=== PATIENT | female | born 1955 | race Two or more races ===

== ENCOUNTER 2018-09-15 08:38 | Day surgery (SDC) | payer MEDICARE, OTHER ==
[2018-09-04 09:49] LABS: APPEARANCE,URINE CLEAR; BILIRUBIN, URINE NEGATIVE (NEGATIVE); COLOR,URINE PALE YELLOW; GLUCOSE, URINE (UA) NEGATIVE (NEGATIVE); KETONES,URINE NEGATIVE (NEGATIVE); LEUKOCYTE ESTERASE ,URINE 1+ (NEGATIVE); NITRITE,URINE NEGATIVE (NEGATIVE); PH,URINE 5 (4.5-8.0); PROTEIN,URINE NEGATIVE (NEGATIVE); UROBILINOGEN,URINE NORMAL MG/DL (0.0-1.0)
[2018-09-04 10:02] LABS: BASOPHILS % (AUTO) 0.4 % (0.0-2.0); EOSINOPHILS % (AUTO) 0.7 % (0.0-3.0); HEMATOCRIT 40.4 % (37.0-47.0); HEMOGLOBIN 13.1 G/DL (12.0-16.0); LYMPHOCYTES % (AUTO) 18.9 % (20.0-45.0); MEAN CORPUSCULAR VOLUME 93 FL (80-99); MONOCYTES % (AUTO) 4.4 % (1.0-10.0); NEUTROPHILS % (AUTO) 75.6 % (45.0-75.0); PLATELET COUNT 250 K/UL (150-450); RED BLOOD COUNT 4.35 M/UL (4.20-5.40); RED CELL DISTRIBUTION WIDTH 12.9 % (11.6-14.8); WHITE BLOOD COUNT 7.9 K/UL (4.8-10.8)
[2018-09-04 10:10] LABS: ANION GAP 11 mmol/L (5-15); BLOOD UREA NITROGEN 19 mg/dL (7-18); CALCIUM 9.2 MG/DL (8.5-10.1); CARBON DIOXIDE 26 MMOL/L (21-32); CHLORIDE 103 MMOL/L (98-107); CREATININE 0.8 MG/DL (0.55-1.30); POTASSIUM 3.8 MMOL/L (3.5-5.1); SODIUM 140 MMOL/L (136-145)
--- NOTE | 2018-09-06 20:24 | Cardiology Report ---
APPROVED REPORT EKG Measurement Heart [id number] Normal sinus rhythm Normal ECG
--- NOTE | 2018-09-12 12:30 | Pre-op HX & Phy Repo 2 SIG ---
DATE OF SURGERY: Scheduled for outpatient surgery September 15, 2018. HISTORY OF PRESENT ILLNESS: The patient is a 63-year-old female in stable health with recent screening imaging followed by diagnostic imaging revealing an abnormality in the right breast upper outer quadrant at 9 to 10 o'clock approximately 9 cm from the nipple where there is a 1.4 cm x 1.3 cm focal asymmetry. Core biopsy has revealed intraductal papilloma and negative for malignancy. The patient is scheduled to undergo excisional biopsy of this abnormality with preoperative needle localization. PAST MEDICAL HISTORY/MEDICATIONS: Lisinopril, levothyroxine, statin, metformin, and aspirin 81 mg. ALLERGIES: Penicillin. OPERATIONS: In 2014, she underwent right breast biopsy in the outer breast, but we have not been able to obtain those reports. She has undergone cataract surgery and left knee surgery. REVIEW OF SYSTEMS: She is nulliparous. PHYSICAL EXAMINATION: GENERAL: The patient is 5 foot 2 inches, 209 pounds. She has diffuse vitiligo. VITAL SIGNS: Within normal limits. HEENT: Within normal limits. LUNGS: Clear. HEART: Regular rhythm. BREASTS: The breasts are large and ptotic. There are no palpable masses in either breasts. There is no primary or secondary sign of malignancy. There is no axillary or supraclavicular lymphadenopathy. ABDOMEN: Soft. PELVIC: Per primary care doctors. RECTAL: Per primary care doctors. EXTREMITIES: Without edema. NEUROLOGIC: Physiologic. IMPRESSION: Intraductal papilloma, right breast. PLAN: I have had a full discussion with the patient regarding the nature of her condition, the nature of the surgery, indications, alternatives, options, and risks including bleeding, infection, need for additional surgery based on final pathology report, need for additional treatments based on final pathology report, scarring, distortion of the breast and the nipple, etc. All questions have been answered. She understands and agrees to proceed as an outpatient under general anesthesia. Ranjith Hills M.D. DR: ANA JOB#: [id number] CC: GIOVANNA
[~2018-09-15] VITALS: Ht 157.5 cm; Wt 96.2 kg
[2018-09-15] VITALS (10 sets, daily range): BP systolic 110–143; BP diastolic 50–72
[2018-09-15] MEDS ORDERED: METFORMIN HCL500 M1 ORAL (09:20)
[2018-09-15] MEDS ORDERED: LISINOPRIL10 MG ORAL (09:20)
[2018-09-15] MEDS ORDERED: SIMVASTATIN10 MG ORAL (09:20)
[2018-09-15] MEDS ORDERED: LEVOTHYROXINE125 MCG ORAL (09:20)
[2018-09-15] MEDS ORDERED: ASPIR 8181 MG ORAL (09:20)
--- NOTE | 2018-09-15 09:22 | Pre-Procedure Note/Attestation ---
Pre-Procedure Note/Attestation Complete Prior to Procedure Planned Procedure: right Procedure Narrative: right breast biopsy with pre-op needle localization Indications for Procedure Pre-Operative Diagnosis: intraductal papilloma right breast Attestation I attest that I discussed the nature of the procedure; its benefits; risks and complications; and alternatives (and the risks and benefits of such alternatives ), prior to the procedure, with the patient (or the patient's legal regional sales representative). I attest that, if there was a reasonable possibility of needing a blood transfusion, the patient (or the patient's legal regional sales representative) was given the [facility] standardized written summary, pursuant to the Graeme Baldo Blood Safety Act ([place] Health and Safety Code # 1645, as amended). I attest that I re-evaluated the patient just prior to the surgery and that there has been no change in the patient's H&P, except as documented below: none Ranjith Hills MD Sep 15, 2018 09:22
[2018-09-15] MEDS ORDERED: LR 1000ml 1,000 ML IVLG SCH (09:33)
[2018-09-15] MEDS ORDERED: Labetalol 5mg/ml 20ml vial IV PRN (09:45)
[2018-09-15] MEDS ORDERED: Ketorolac 30mg Inj IV PRN ×2 (09:45)
[2018-09-15] MEDS ORDERED: Meperidine 50mg/ml Inj(FOR RIGORS ONLY) IVP PRN (09:45)
[2018-09-15] MEDS ORDERED: DiphenhydrAMINE 50mg/ml Inj IVP PRN (09:45)
[2018-09-15] MEDS ORDERED: oxyCODONE HCL/Acetaminophen 5/325mg ORAL PRN (09:45)
[2018-09-15] MEDS ORDERED: LORazepam Inj 2mg/ml 1ml IV PRN (09:45)
[2018-09-15] MEDS ORDERED: Midazolam 2mg/2ml Inj IVP PRN (09:45)
[2018-09-15] MEDS ORDERED: fentaNYL 100 mcg/2 mL IV PRN (09:45)
[2018-09-15] MEDS ORDERED: Atropine Sulfate 0.4mg/ml inj IVP PRN (09:45)
[2018-09-15] MEDS ORDERED: Metoclopramide 10mg/2ml Inj IVP PRN (09:45)
[2018-09-15] MEDS ORDERED: Acetaminophen (Non formulary) 100 ML IV ONE (09:45)
[2018-09-15] MEDS ORDERED: HYDROcodone/Acetamin 7.5/325 tab ORAL PRN (09:45)
[2018-09-15] MEDS ORDERED: Hydromorphone 0.5mg/0.5ml inj IVP PRN (09:45)
[2018-09-15] MEDS ORDERED: HYDROcodone/Acetamin 5/325 tab ORAL PRN ×2 (09:45→11:15)
--- NOTE | 2018-09-15 09:46 | Anethesia Preoperative Eval ---
Anesthesia Pre-op PMH/ROS General Date of Evaluation: Sep 15, 2018 Time of Evaluation: 10:01 Anesthesiologist: Rik ASA Score: ASA 3 Mallampati Score Class I : Soft palate, uvula, fauces, pillars visible Class II: Soft palate, uvula, fauces visible Class III: Soft palate, base of uvula visible Class IV: Only hard plate visible Mallampati Classification: Class III Surgeon: Jeana Diagnosis: R Breast Mass Surgical Procedure: R Breast Biopsy Anesthesia History: none Family History: no anesthesia problems Allergies: Coded Allergies: PENICILLINS (Verified Allergy, Severe, RASH , 09/15/18) Medications: see eMAR Patient NPO?: Yes Past Medical History Cardiovascular: Reports: HTN, other - HL Endocrine: Reports: DM HEENT: Reports: cataract (L), cataract (R) Other: obesity - BMI 40 Anesthesia Pre-op Phys. Exam Physician Exam Last Vital Signs Date Time Temp Pulse Resp B/P (MAP) Pulse Ox O2 Delivery O2 Flow Rate FiO2 09/15/18 09:17 Room Air 09/15/18 09:10 97.6 70 18 141/72 100 Constitutional: NAD Neurologic: CN 2-12 intact Cardiovascular: RRR Respiratory: CTA Gastrointestinal: S/NT/ND Airway Exam Mallampati Score: Class III MO: limited ROM: limited Teeth: missing, intact Anesthesia Pre-op A/P Risk Assessment & Plan Assessment: ASA 3 Plan: GA, SED Status Change Before Surgery: No Pre-Antibiotics Dru Grams Ancef IV Given Within 1 Hr of Incision: Yes Time Given: 10:11 Chandler Jolly MD Sep 15, 2018 09:46
[2018-09-15] MEDS ORDERED: Lidocaine 1% MPF 10mg/ml 5ml ONE (09:48)
[2018-09-15] MEDS ORDERED: fentaNYL 100 mcg/2 mL IV ONE (09:48)
[2018-09-15] MEDS ORDERED: Sodium Chloride 10ml vial INJ ONE (09:48)
[2018-09-15] MEDS ORDERED: Midazolam 2mg/2ml Inj ONE (09:49)
[2018-09-15] MEDS ORDERED: Lidocaine 1% Plain 30 ml INJ ONE ×2 (09:51→09:57)
[2018-09-15] MEDS ORDERED: Bupivacaine 0.5% Inj 30 ml vial INJ ONE (09:56)
[2018-09-15] MEDS ORDERED: NeoSporin Gu Irrig 1ml Amp IRRIG ONE (09:57)
[2018-09-15] MEDS ORDERED: Bacitracin 50000 Units Vial ONE (09:57)
[2018-09-15] MEDS ORDERED: Sterile Water Irrig 1000ml IRRIG ONE (10:00)
[2018-09-15] MEDS ORDERED: NS Irrig 1000ml ONE (10:00)
[2018-09-15] MEDS ORDERED: LR 1000ml ONE (10:00)
[2018-09-15] MEDS ORDERED: Propofol 1,000mg/ 100ml btl IV ONE (10:00)
--- NOTE | 2018-09-15 10:51 | 48 Hour Post Anesthesia Eval ---
Post Anesthesia Evaluation Procedure: R Breast Biopsy Date of Evaluation: Sep 15, 2018 Airway: patent Nausea: No Vomiting: No Pain Intensity: 2 Hydration Status: adequate Cardiopulmonary Status: Stable Mental Status/LOC: patient returned to baseline Follow-up Care/Observations: 0 Post-Anesthesia Complications: 0 Follow-up care needed: ready to discharge Chandler Jolly MD Sep 15, 2018 10:51
--- NOTE | 2018-09-15 10:51 | Immediate Post-Op Evaluation ---
Immediate Post-Op Evalulation Immediate Post-Op Evalulation Procedure: R Breast Biopsy Date of Evaluation: Sep 15, 2018 Blood Products: 0 Pain Score (1-10): 2 Nausea: No Vomiting: No Complications 0 Patient Status: awake, reacts, patent, extubated, none Hydration Status: adequate Dru Grams Ancef IV Given Within 1 Hr of Incision: Yes Time Given: 10:11 Chandler Jolly MD Sep 15, 2018 10:51
[2018-09-15] MEDS ORDERED: Ketorolac 30mg Inj ONE (11:00)
[2018-09-15] MEDS ORDERED: HYDROmorphone 1mg/ml Carpuject SUBQ PRN (11:15)
[2018-09-15] MEDS ORDERED: D5 1/2NS 1,000 ML IV SCH (11:15)
[2018-09-15] MEDS ORDERED: Tylenol #3 tab (300mg/30mg) ORAL PRN (11:15)
--- NOTE | 2018-09-15 11:17 | Brief Operative Note ---
Immediate Post Operative Note Operative Note Pre-op Diagnosis: intraductal papilloma right breast Procedure: right breast biopsy with pre-op needle localization Post-op Diagnosis: same Post-op Diagnosis: same as pre-op Findings: consistent w/pre-op dx studies Surgeon: ángel Anesthesiologist: marilyn Anesthesia: general Specimen: yes - right breast tissue Complications: none Condition: stable Fluids: see anesthesia record Estimated Blood Loss: minimal Drains: none Implant(s) used?: No Ranjith Hills MD Sep 15, 2018 11:17
--- NOTE | 2018-09-15 17:45 | Operative Note - Dictated ---
DATE OF OPERATION: 09/15/2018 SURGEON: Ranjith Hills M.D. TIRE RECAPPER: None. ANESTHESIOLOGIST: Chandler Jolly M.D. TYPE OF ANESTHESIA: General PREOPERATIVE DIAGNOSIS: Right breast intraductal papilloma. POSTOPERATIVE DIAGNOSIS: Right breast intraductal papilloma. OPERATION PERFORMED: Right breast biopsy with preoperative needle localization. INDICATIONS: The patient presented with imaging studies showing a 1.4 x 1.3 cm focal asymmetry. Core biopsy revealed intraductal papilloma. There was no palpable mass. DESCRIPTION OF PROCEDURE: The patient was taken to the operating room and under general anesthesia with sequential compression device stockings in place, she was prepped and draped in usual fashion. The lesion was located at approximately 9 o'clock in the right breast, 9 cm from the nipple. Radial incision was made achieving hemostasis with cautery. Flaps were dissected circumferentially and the wire brought into the field. The appropriate sector of breast tissue was removed encompassing the wire and clip and orienting the specimen with suture markers anterior, superior, and medial. Specimen radiography confirmed the presence of lesion within the tissue which was then given to pathology. Hemostasis was carefully achieved with cautery. The incision was closed with interrupted 3-0 Vicryl deep dermal subcutaneous sutures followed by 4-0 Monocryl continuous subcuticular suture. Tincture of benzoin and half-inch Steri-Strips were applied followed by dry sterile dressing. Final sponge and needle counts were correct. The patient tolerated the procedure well and left the operating room in good condition. Ranjith Hills M.D. DR: Star JOB#: [id number] CC:
== END 2018-09-15 13:00 | disposition home or self-care (01) ==
LOC: SUR 08:38
DX: D05.11 Intraductal carcinoma in situ of right breast (principal); I10 Essential (primary) hypertension; E11.9 Type 2 diabetes mellitus without complications; Z88.0 Allergy status to penicillin; Z79.82 Long term (current) use of aspirin; Z79.84 Long term (current) use of oral hypoglycemic drugs
CPT/HCPCS: 19101; 36415; 80048; 81003; 82962; 85025; 85610; 85730; 93005; J0690; J1885; J2001; J2250; J2405; J2704; J3010; 94003; 94150